=== PATIENT | female | born 1965 | race Caucasian/White ===

== ENCOUNTER → 2016-08-15 | Outpatient (CLI) | payer OTHER ==
[~2016-08-15] MED LIST: PERC5TAB6 PO
--- NOTE | 2016-08-16 04:17 | REP ---
Clinical: Left lower quadrant pain . Technique: Transabdominal pelvic ultrasound followed by transvaginal examination for better evaluation of the endometrium and adnexa with color Doppler evaluation of the ovaries. Findings: Bladder is unremarkable and measures 9.3 x 3.4 x 7.2 cm . Normal anteverted uterus measures 7.8 x 3.7 x 4.6 cm . The endometrial complex measures 8.9 mm thickness. No discrete uterine or endometrial abnormalities are appreciated. Left ovary is normal in appearance and vascularity without evidence for torsion. The patient is status post right oophorectomy. Left ovary measures 1.8 x 1.6 x 1.6 cm ; R I = 0.77 . No pelvic fluid or adnexal mass lesion . Impression: 1. Normal uterus and left ovary. Signed by Ryan Anderson MD 08/16/2016 04:09 A
== END ==
LOC: M RAD 16:06
PROVIDERS: ATTEND Nurse Practitioner Family
DX: R10.32 Left lower quadrant pain (principal)

== ENCOUNTER → 2016-11-06 | Outpatient (CLI) | payer OTHER ==
[~2016-11-06] MED LIST changes: +GASTROGRAFIN SOLUTION 30ML (Q9963) As Ordered ONE; +ISOVUE-370 76% 100ML VIAL (Q9967) As Ordered ONE; +PERC5TAB12 PO; -PERC5TAB6 PO
--- NOTE | 2016-11-07 04:59 | REP ---
Clinical: Left lower quadrant pain. Technique: Axial contrast enhanced images from the lung bases to the pubic symphysis using oral and 100 ml Isovue 370 intravenous contrast material with precontrast images of the abdomen as well as coronal and sagittal re-formations. Comparison: 07/04/2015. Findings: Lung bases are clear. Visualized heart and pericardium normal. Hepatomegaly and diffuse fatty infiltration to the liver is appreciated with areas of focal fatty sparing. Spleen, pancreas, gallbladder, bilateral adrenal glands and kidneys are normal. The enteric system is without obstruction or acute inflammatory process. Normal terminal ileum and appendix identified in the right lower quadrant. Pelvis demonstrates normal bladder and age-appropriate uterus/adnexa. No pelvic fluid or ascites. No significant adenopathy. No obvious mass lesion. No free air. Vasculature and abdominal aorta appear normal. Musculoskeletal structures are intact. Impression: 1. Hepatomegaly and fatty infiltration to the liver with areas of focal fatty sparing. 2. No acute abdominopelvic pathology appreciated. Signed by Ryan Anderson MD 11/07/2016 04:51 A
== END ==
LOC: M RAD 15:06
PROVIDERS: ATTEND Nurse Practitioner Family
DX: R10.32 Left lower quadrant pain (principal); K76.0 Fatty (change of) liver, not elsewhere classified
CPT/HCPCS: 74178; Q9963; Q9967

== ENCOUNTER → 2016-12-12 | Outpatient (CLI) | payer OTHER ==
[~2016-12-12] MED LIST changes: -GASTROGRAFIN SOLUTION 30ML (Q9963) As Ordered ONE; -ISOVUE-370 76% 100ML VIAL (Q9967) As Ordered ONE
--- NOTE | 2016-12-12 15:37 | REPMRS ---
Patient History The patient states she had a clinical breast exam in 11/2016. Family history of ovarian cancer in paternal aunt under age 50. Took hormonal contraceptives for 23 years. Digital Woman Screen Mammo: December 12, 2016 - Exam #: [id number] Bilateral CC and MLO view(s) were taken. Technologist: Elizabeth Robles Technologist Prior study comparison: November 14, 2015, left breast digital mammo diagnostic unilateral, performed at [facility]. November 10, 2015, digital woman screen mammo performed at [facility]. August 10, 2014, digital woman screen mammo performed at [facility]. FINDINGS: There are scattered fibroglandular densities. There has been no change in the appearance of the mammogram from the prior studies. There is a mild amount of scattered fibroglandular density which is fairly symmetric. There is no interval development of dominant mass, architectural distortion, or clustered microcalcification suggestive of malignancy. ASSESSMENT: BI-RADS/ACR category 1 mammogram. Negative. Recommendation Routine screening mammogram in 1 year (for women over age 40). This mammogram was interpreted with the aid of an FDA-approved computer-aided dectection system. Electronically Signed By: Anil Bajwa MD 12/12/16 [id number]
== END ==
LOC: M WHC 14:29
PROVIDERS: ATTEND Nurse Practitioner Family
DX: Z12.31 Encounter for screening mammogram for malignant neoplasm of breast (principal); Z92.0 Personal history of contraception

== ENCOUNTER 2017-03-10 11:44 | Day surgery (SDC) | payer OTHER ==
[~2017-03-10] VITALS: Ht 160 cm; Wt 69.9 kg
[~2017-03-10 11:44] MED LIST changes: +JANU100T PO; +LIDOCAINE 2% INJ 100 MG/5 ML SDV (FOR ANES.) As Ordered ONE; +LISI10TA4 PO; +PROP80CA PO; +PROPOFOL 200 MG/20 ML VIAL As Ordered ONE; +VITA1CAP7 PO
[2017-03-10] MEDS ORDERED: NS 1,000 ML IV ONE (13:00)
[2017-03-10] MEDS ORDERED: PROPOFOL 200 MG/20 ML VIAL As Ordered ONE (13:24)
--- NOTE | 2017-03-10 13:53 | ROOR ---
Patient Name: Vanessa Jiménez Procedure Date: 03/10/2017 1:15 PM Date of : 1965 Age: 51 Room: [facility] Gender: Female Note Status: Finalized Procedure: Total Colonoscopy to Cecum + Hot Snare Polypectomy + Hemoclips Indications: Screening for colorectal malignant neoplasm Providers: Darin Lutz MD Referring MD: YUNG THOMSON NP Requesting Provider: Medicines: Monitored Anesthesia Care Complications: No immediate complications. Procedure: Pre-Anesthesia Assessment: - The heart rate, respiratory rate, oxygen saturations, blood pressure, adequacy of pulmonary ventilation, and response to care were monitored throughout the procedure. The Colonoscope was introduced through the anus and advanced to the cecum, identified by appendiceal orifice and ileocecal valve. The colonoscopy was performed without difficulty. The patient tolerated the procedure well. The quality of the bowel preparation was excellent. Findings: The perianal and digital rectal examinations were normal. Non-bleeding internal hemorrhoids were found during retroflexion. The hemorrhoids were small and Grade I (internal hemorrhoids that do not prolapse). A large polyp was found at 10 cm proximal to the anus. The polyp was semi-pedunculated. The polyp was removed with a hot snare. Resection and retrieval were complete. To prevent bleeding after the polypectomy, three hemostatic clips were successfully placed (MR conditional). There was no bleeding at the end of the procedure. The exam was otherwise without abnormality on direct and retroflexion views. Impression: - Non-bleeding internal hemorrhoids. - One large polyp at 10 cm proximal to the anus, removed with a hot snare. Resected and retrieved. Clips (MR conditional) were placed. - The examination was otherwise normal on direct and retroflexion views. - The exam was otherwise normal to the cecum. Recommendation: - Patient has a contact number available for emergencies. The signs and symptoms of potential delayed complications were discussed with the patient. Return to normal activities tomorrow. Written discharge instructions were provided to the patient. - High fiber diet. - Discharge patient to home. - Continue present medications. - Await pathology results. - Telephone GI clinic for pathology results in 1 week. - Check Portal Online for Path [email or web address] - Repeat colonoscopy for surveillance based on pathology results. - Return to referring physician. - The findings and recommendations were discussed with the patient's family. Darin Lutz MD Darin Lutz MD 03/10/2017 1:52:33 PM This report has been signed electronically. Number of Addenda: 0 Note Initiated On: 03/10/2017 1:15 PM Estimated Blood Loss: Estimated blood loss: none.
[2017-03-10 14:23] VITALS: BP 126/95
== END 2017-03-10 14:25 | disposition home or self-care (01) ==
LOC: M OPP 11:44
PROVIDERS: ATTEND Internal Medicine Gastroenterology
DX: K64.0 First degree hemorrhoids (principal); D12.6 Benign neoplasm of colon, unspecified; I10 Essential (primary) hypertension; E11.9 Type 2 diabetes mellitus without complications; E55.9 Vitamin D deficiency, unspecified; L71.9 Rosacea, unspecified; G43.909 Migraine, unspecified, not intractable, without status migrainosus; Z79.899 Other long term (current) drug therapy

== ENCOUNTER 2017-04-19 17:47 | Emergency (ER) | payer OTHER | END 2017-04-19 18:48 | disposition home or self-care (01) | LOC: M ED 17:47 | DX: S61.011A Laceration without foreign body of right thumb without damage to nail, initial encounter (principal); W26.8XXA Contact with other sharp object(s), not elsewhere classified, initial encounter; Y92.099 Unspecified place in other non-institutional residence as the place of occurrence of the external cause; Y93.G3 Activity, cooking and baking; R51 Headache; Z79.899 Other long term (current) drug therapy | CPT/HCPCS: 99282 ==

== ENCOUNTER → 2017-10-31 | Outpatient (REF) | payer OTHER ==
[2017-10-31 10:09] LABS: ANION GAP 9 MEQ/L (8-16); BLOOD UREA NITROGEN 15 MG/DL (7-18); CALCIUM LEVEL 8.6 MG/DL (8.5-10.1); CARBON DIOXIDE LEVEL 27 MEQ/L (21-32); CHLORIDE LEVEL 107 MEQ/L (98-107); CHOLESTEROL LEVEL 193 MG/DL (<200); CHOLESTEROL RISK RATIO 4.195 (<5); CREATININE FOR GFR 0.81 MG/DL (0.55-1.30); GLOMERULAR FILTRATION RATE > 60.0 (>51); GLUCOSE, FASTING 131 MG/DL (70-100); HDL CHOLESTEROL 46 MG/DL (>40); LDL CHOLESTEROL 124.8 MG/DL (<100); NON-HDL-C 147 MG/DL; POTASSIUM SERUM 4.4 MEQ/L (3.5-5.1); SODIUM LEVEL 143 MEQ/L (136-145); TRIGLYCERIDES LEVEL 111 MG/DL (<150)
[2017-10-31 12:02] LABS: ESTIMATED AVERAGE GLUCOSE 154 MG/DL (60-110)
== END ==
LOC: M LAB REF 09:41
DX: I10 Essential (primary) hypertension (principal); E11.9 Type 2 diabetes mellitus without complications

== ENCOUNTER → 2017-12-16 | Outpatient (CLI) | payer OTHER | LOC: M WHC 15:42 | DX: Z12.31 Encounter for screening mammogram for malignant neoplasm of breast (principal) | CPT/HCPCS: 77067 ==

== ENCOUNTER 2018-02-25 09:11 | Day surgery (SDC) | payer OTHER ==
[2018-02-25] MEDS: NS 1,000 ML IV (06:00)
[~2018-02-25 09:11] MED LIST changes: -JANU100T PO; +LIDOCAINE 2% INJ 100 MG/5 ML SDV (FOR ANES.) As Ordered; -LIDOCAINE 2% INJ 100 MG/5 ML SDV (FOR ANES.) As Ordered ONE; -LISI10TA4 PO; -PERC5TAB12 PO; -PROP80CA PO; +PROPOFOL 200 MG/20 ML VIAL As Ordered; -PROPOFOL 200 MG/20 ML VIAL As Ordered ONE; -VITA1CAP7 PO
== END 2018-02-25 11:40 | disposition home or self-care (01) ==
LOC: M OPP 09:11
DX: Z86.010 Personal history of colon polyps (principal); K64.0 First degree hemorrhoids; D12.6 Benign neoplasm of colon, unspecified
CPT/HCPCS: 45380

== ENCOUNTER → 2019-02-09 | Outpatient (CLI) | payer OTHER ==
[~2019-02-09] MED LIST changes: +D-3-50003 PO; +FROV2.5T4 PO; +JANU100T PO; -LIDOCAINE 2% INJ 100 MG/5 ML SDV (FOR ANES.) As Ordered; +LISI10TA4 PO; +PERC5TAB12 PO; +PROP80CA PO; -PROPOFOL 200 MG/20 ML VIAL As Ordered
--- NOTE | 2019-02-10 08:41 | REPMRS ---
Patient History The patient states she had a clinical breast exam in 01/2019. No known family history of cancer. Took hormonal contraceptives for 23 years. 3D TOMOSYNTHESIS WAS PERFORMED. [facility] lifetime risk for breast cancer is 9.6%. Digital Woman Screen Mammo: February 09, 2019 - Exam #: [id number] Bilateral CC and MLO view(s) were taken. Technologist: Feli Mclaughlin, Technologist Prior study comparison: December 16, 2017, bilateral digital woman screen mammo performed at [facility]. December 12, 2016, digital woman screen mammo performed at [facility]. FINDINGS: The breast tissue is heterogeneously dense. This may lower the sensitivity of mammography. There has been no change in the appearance of the mammogram from the prior studies. There is a moderate amount of residual fibroglandular tissue which is fairly symmetric. There is no interval development of dominant mass, areas of architectural distortion, or clustered microcalcification typical of malignancy. Assessment: BI-RADS/ACR category 1 mammogram. Negative Mammogram. Recommendation Routine screening mammogram in 1 year (for women over age 40). This mammogram was interpreted with the aid of an FDA-approved computer-aided dectection system. Electronically Signed By: Javier Rogers MD 02/10/19 [id number]
== END ==
LOC: M WHC 15:42
PROVIDERS: ATTEND Nurse Practitioner Family
DX: Z12.31 Encounter for screening mammogram for malignant neoplasm of breast (principal)

== ENCOUNTER → 2020-03-16 | Outpatient (CLI) | payer OTHER ==
--- NOTE | 2020-03-16 16:18 | REPMRS ---
Patient History The patient states she had a clinical breast exam in 2019. Patient is postmenopausal. No known family history of cancer. Took hormonal contraceptives for 23 years. Digital Woman Screen Mammo: March 16, 2020 - Exam #: [id number] Bilateral CC and MLO view(s) were taken. Technologist: Batool Kerr, Technologist Prior study comparison: February 09, 2019, bilateral digital woman screen mammo performed at [facility]. December 16, 2017, bilateral digital woman screen mammo performed at [facility]. December 12, 2016, digital woman screen mammo performed at [facility]. FINDINGS: There are scattered fibroglandular densities. The [employer] volumetric breast density category is:B. There has been no change in the appearance of the mammogram from the prior studies. There is a mild amount of scattered fibroglandular density which is fairly symmetric. There is no interval development of dominant mass, architectural distortion, or grouped microcalcification suggestive of malignancy. 3-D tomosynthesis shows no additional findings. Assessment: BI-RADS/ACR category 1 mammogram. Negative Mammogram. Recommendation Routine screening mammogram of both breasts in 1 year (for women over age 40). This patient's [facility] Lifetime Breast Cancer Risk is estimated at 9.9 %. This mammogram was interpreted with the aid of an FDA-approved computer-aided dectection system. Electronically Signed By: Anil Bajwa MD 03/16/20 [id number]
== END ==
LOC: M WHC 14:28
PROVIDERS: ATTEND Nurse Practitioner Family
DX: Z12.31 Encounter for screening mammogram for malignant neoplasm of breast (principal); Z78.0 Asymptomatic menopausal state; Z92.0 Personal history of contraception

== ENCOUNTER → 2020-05-30 | Outpatient (CLI) | payer OTHER ==
[~2020-05-30] MED LIST changes: +LISI10TA22 PO; -LISI10TA4 PO
--- NOTE | 2020-05-31 04:12 | REP ---
INDICATION: N95.0 POSTMENOPAUSAL BLEEDING,R10.32 LLQ PAIN COMPARISON: 08/15/2016 TECHNIQUE: Transabdominal pelvic ultrasound followed by transvaginal examination for better evaluation of the endometrium and adnexa with color evaluation of the ovaries. FINDINGS: Bladder is unremarkable and measures 8.2 x 13.2 x 5.8 cm. Heterogeneous anteverted uterus measures 7.6 x 3.3 x 4.0 cm. The endometrial complex measures 7.7 mm thickness. No discrete uterine or endometrial abnormalities are appreciated. Right ovary is surgically absent. Left ovary appears normal and measures 1.7 x 1.5 x 1.1 cm. No pelvic fluid or adnexal mass lesion. IMPRESSION: Heterogeneous uterus and mildly prominent endometrium. No focal uterine or endometrial abnormality noted. <Electronically signed by Ryan Anderson > 05/31/20 [id number]
== END ==
LOC: M WHC 13:20
PROVIDERS: ATTEND Nurse Practitioner Family
DX: N95.0 Postmenopausal bleeding (principal)

== ENCOUNTER → 2021-01-19 | Outpatient (CLI) | payer OTHER ==
--- NOTE | 2021-01-19 19:51 | REP ---
INDICATION: NODULE COMPARISON: None. TECHNIQUE: Rogers scale and color evaluation of the thyroid gland using the linear high frequency transducer. FINDINGS: The thyroid gland is diffusely heterogeneous and demonstrates multiple bilateral solid and complex nodules and cystic changes most suggestive of multinodular goiter. Right lobe measures 4.7 x 1.9 x 2.2 cm with the largest complex solid lesion in the upper pole measuring 19 x 16 x 12 mm. Left lobe measures 5.2 x 2.4 x 2.3 cm with the largest complex solid lesion approaching the isthmus measuring 12 x 14 x 13 mm. IMPRESSION: Findings suggesting multinodular goiter. <Electronically signed by Ryan Anderson > 01/19/211946
== END ==
LOC: M RAD 16:58
PROVIDERS: ATTEND Internal Medicine
DX: E04.1 Nontoxic single thyroid nodule (principal)

== ENCOUNTER → 2021-08-07 | Outpatient (CLI) | payer OTHER | LOC: M WUC 15:20 | PROVIDERS: ATTEND Internal Medicine Cardiovascular Disease | DX: I49.3 Ventricular premature depolarization (principal); Z53.8 Procedure and treatment not carried out for other reasons ==

== ENCOUNTER → 2021-08-08 | Outpatient (CLI) | payer OTHER | LOC: M WUC 15:00 | PROVIDERS: ATTEND Internal Medicine Cardiovascular Disease | DX: I49.3 Ventricular premature depolarization (principal) ==

== ENCOUNTER → 2021-08-27 | Outpatient (CLI) | payer OTHER | LOC: M SLEEP HO 14:39 | PROVIDERS: ATTEND Internal Medicine Cardiovascular Disease | DX: R06.83 Snoring (principal); R94.09 Abnormal results of other function studies of central nervous system ==

== ENCOUNTER → 2021-08-30 | Outpatient (CLI) | payer OTHER | LOC: M WHC 15:10 | PROVIDERS: ATTEND Advanced Practice Midwife | DX: Z12.31 Encounter for screening mammogram for malignant neoplasm of breast (principal); Z92.0 Personal history of contraception ==

== ENCOUNTER → 2021-11-23 | Outpatient (CLI) | payer OTHER | LOC: M EKG 08:08 | PROVIDERS: ATTEND Orthopaedic Surgery | DX: G56.02 Carpal tunnel syndrome, left upper limb (principal); G56.22 Lesion of ulnar nerve, left upper limb ==

== ENCOUNTER → 2023-02-19 | Outpatient (REF) | payer OTHER ==
[2023-02-19 17:23] LABS: APPEARANCE, URINE CLEAR (CLEAR); BACTERIA, URINE AUTO NEGATIVE (NEGATIVE); BILIRUBIN, URINE AUTO NEGATIVE (NEGATIVE); BLOOD, URINE BLOOD NEGATIVE (NEGATIVE); COLOR, URINE YELLOW (YELLOW); GLUCOSE, URINE (UA) AUTO NEGATIVE (NEGATIVE); KETONE, URINE AUTO NEGATIVE (NEGATIVE); LEUKOCYTE ESTERASE, URINE AUTO 1+ (NEGATIVE); MUCUS, URINE SMALL (NEGATIVE); NITRITE, URINE AUTO NEGATIVE (NEGATIVE); PROTEIN, URINE AUTO NEGATIVE (NEGATIVE); RBC, URINE AUTO 0 /HPF (0-3); SPECIFIC GRAVITY URINE AUTO 1.014 (1.002-1.035); SQUAMOUS EPITHELIAL CELL UR AU 1 /HPF (0-6); UROBILINOGEN, URINE AUTO 0.2 mg/dL (0.0-2.0); WBC, URINE AUTO 7 /HPF (0-3)
== END ==
LOC: M LAB REF 16:22
PROVIDERS: ATTEND Internal Medicine
DX: R31.9 Hematuria, unspecified (principal)

== ENCOUNTER → 2023-03-10 | Outpatient (CLI) | payer OTHER | LOC: M WHC 15:42 | PROVIDERS: ATTEND Internal Medicine | DX: Z12.31 Encounter for screening mammogram for malignant neoplasm of breast (principal) ==

== ENCOUNTER 2023-06-30 08:04 | Day surgery (SDC) | payer OTHER ==
[~2023-06-30] VITALS: Ht 160 cm; Wt 95.0 kg
[~2023-06-30 08:04] MED LIST changes: +RIZA10TA58 PO; +ROSU5TAB5 PO; +TIRZ7.5P SC
[2023-06-30] MEDS: NS 1,000 ML IV ONE (08:32)
[2023-06-30] MEDS ORDERED: propofoL 500 MG/50 ML VIAL As Ordered ONE (09:23)
[2023-06-30 10:13] VITALS: TEMP 97.5
[2023-06-30 10:27] VITALS: BP 128/77; O2SAT 96
== END 2023-06-30 10:33 | disposition home or self-care (01) ==
LOC: M OPP 08:04
PROVIDERS: ATTEND Internal Medicine Gastroenterology
DX: Z12.11 Encounter for screening for malignant neoplasm of colon (principal); Z86.010 Personal history of colon polyps; D12.6 Benign neoplasm of colon, unspecified; K64.0 First degree hemorrhoids; E11.9 Type 2 diabetes mellitus without complications; G47.30 Sleep apnea, unspecified; Z99.89 Dependence on other enabling machines and devices; Z79.02 Long term (current) use of antithrombotics/antiplatelets; Z79.85 Long-term (current) use of injectable non-insulin antidiabetic drugs; Z79.899 Other long term (current) drug therapy; Z88.5 Allergy status to narcotic agent

== ENCOUNTER → 2023-11-26 | Outpatient (REF) | payer OTHER ==
[~2023-11-26] MED LIST changes: +ROSU5TAB40 PO; -ROSU5TAB5 PO
[2023-12-02 12:26] LABS: HPV APTIMA Not Detected (Not Detected)
== END ==
LOC: M SFHCWAGY 15:27
PROVIDERS: ATTEND Nurse Practitioner Family
DX: Z12.4 Encounter for screening for malignant neoplasm of cervix (principal); N95.0 Postmenopausal bleeding
CPT/HCPCS: 87624; 88305; G0123

== ENCOUNTER → 2024-04-05 | Outpatient (CLI) | payer OTHER ==
[~2024-04-05] MED LIST changes: -ROSU5TAB40 PO; +ROSU5TAB49 PO
== END ==
LOC: M WHC 15:54
PROVIDERS: ATTEND Internal Medicine
DX: Z12.31 Encounter for screening mammogram for malignant neoplasm of breast (principal); R92.323 Mammographic fibroglandular density, bilateral breasts

== ENCOUNTER 2024-06-02 07:13 | Day surgery (SDC) | payer OTHER ==
[~2024-06-02] VITALS: Ht 160 cm; Wt 96.0 kg
[~2024-06-02 07:13] MED LIST changes: +TIRZ12.5 SQ
[2024-06-02] MEDS ORDERED: propofoL 200 MG/20 ML VIAL As Ordered ONE (08:21)
[2024-06-02] MEDS ORDERED: LIDOCAINE 2% 100MG/5ML SDV (FOR ANES.) As Ordered ONE (08:21)
[2024-06-02 08:44] VITALS: TEMP 98.2
[2024-06-02 09:14] VITALS: BP 160/91; O2SAT 98
== END 2024-06-02 09:15 | disposition home or self-care (01) ==
LOC: M OPP 07:13
PROVIDERS: ATTEND Internal Medicine Gastroenterology
DX: K64.0 First degree hemorrhoids (principal); Z98.890 Other specified postprocedural states; Z86.03 Personal history of neoplasm of uncertain behavior; G47.30 Sleep apnea, unspecified; Z88.5 Allergy status to narcotic agent; Z79.85 Long-term (current) use of injectable non-insulin antidiabetic drugs